=== PATIENT | male | born 1955 | race Caucasian/White ===

== ENCOUNTER → 2019-10-11 11:29 | Outpatient (BNVA) | payer MEDICARE, SELFPAY | PROVIDERS: Family Provider Family Medicine; PCP Family Medicine; Visit Provider Family Medicine | DX: I70.8 Atherosclerosis of other arteries (principal); Z79.899 Other long term (current) drug therapy | CPT/HCPCS: 80053 ==

== ENCOUNTER 2019-10-21 11:17 | Outpatient (CLI) | payer MEDICARE, SELFPAY ==
--- NOTE | 2019-10-21 11:31 | XR_ITS ---
WS: [id number] CHEST 2 VIEWS HISTORY: copd COMPARISON: 01/24/2018 Lungs: Hyperinflated lungs. No pneumonia. Normal vasculature. Dual lead LEFT subclavian cardiac pacer with defibrillator. Cardiac size: Mildly enlarged cardiac silhouette. Mediastinum/Aorta: Ectatic thoracic aorta. Bones: Normal. Prior cholecystectomy. XR/XR chest 2V* [id number] IMPRESSION: Mild chronic emphysema and mild cardiomegaly.
== END 2019-10-21 11:18 | disposition home or self-care (01) ==
PROVIDERS: PCP Family Medicine; Visit Provider Family Medicine
DX: I70.8 Atherosclerosis of other arteries (principal); J43.9 Emphysema, unspecified; I51.7 Cardiomegaly
CPT/HCPCS: 71046

== ENCOUNTER → 2020-02-11 11:43 | Outpatient (BNVA) | payer MEDICARE, SELFPAY | PROVIDERS: PCP Family Medicine; Visit Provider Internal Medicine Cardiovascular Disease | DX: E78.5 Hyperlipidemia, unspecified (principal); I10 Essential (primary) hypertension; N28.9 Disorder of kidney and ureter, unspecified | CPT/HCPCS: 80053; 80061; 85025 ==

== ENCOUNTER 2020-02-28 09:51 | Emergency (ER) | payer MEDICARE, SELFPAY ==
[2020-02-28 10:08] VITALS: BP 116/83; PULSE 84; RESP 16; TEMP 36.3; O2SAT 97; BMI 22.0
[2020-02-28 10:14] VITALS: O2SAT 97
--- NOTE | 2020-02-28 10:33 | CT_ITS ---
WS: [id number] CT ABDOMEN PELVIS TECHNIQUE: Contrast-enhanced CT of the abdomen and pelvis with coronal and sagittal reformatted image s. CLINICAL INFORMATION: abd pain, RLQ, LLQ COMPARISON: CT 11 019 DLP: 446.[address] scans at [facility] use at least one of these dose optimization techniques: automat ed exposure control; mA and/or kV adjustment per patient size (includes targeted exams where dose is matched to clinical indication); or iterative reconstruction. FINDINGS: Diffuse fatty infiltration liver. Cholecystectomy clips. Lung bases are well aerated. Normal GE junct ion. Normal spleen. Pancreas appears normal. Adrenal glands are normal. Normal renal parenchymal enha ncement. No hydronephrosis. No obstructing renal or ureteral calculi. Normal caliber abdominal aorta. Normal sigmoid colon. No evidence of small or large bowel obstruction. No periaortic lymphadenopathy. No inguinal lymphadenopathy. No pelvic lymphadenopathy. Disc osteophyte complex L4-5 with4 moderate central canal stenosis. CT/CT abdomen pelvis w con* [id number] IMPRESSION: 1. No acute abdominal or pelvic findings. 2. No evidence of small or large bowel obstruction. 3. Sigmoid diverticulosis. No evidence of acute diverticulitis. 4. Cholecystectomy clips. 5. Normal caliber abdominal aorta.
--- NOTE | 2020-02-28 10:34 | W.ED.ABDPA2 ---
HPI - Abdominal Pain General: Chief Complaint: Abdominal Pain Stated Complaint: CHRONIC LOWER ABD PAIN Time Seen by Provider: 02/28/20 10:09 History of Present Illness: HPI narrative: Complains about chronic lower abdominal pain over the last 3 years been worse last couple months is not seen by 4 says it hurts across his right lower quadrant area hurts to move hurts to walk at times said it radiates up into his epigastric area time he does have history of chronic low back problems MD elicited complaint: abdominal pain Location: RLQ and LLQ Severity: similar to previous episodes Quality: aching Radiation: epigastric Exacerbating factors: movement Relieving factors: rest Associated Symptoms: Reports no associated symptoms; Denies chills, fever(s), nausea and vomiting Review of Systems Const: Denies: fever(s), chills or body aches Eyes: Denies: change in vision or blurry vision ENMT: Denies: throat pain or nasal congestion Card: Denies: chest pain or dyspnea on exertion Resp: Denies: dyspnea, productive cough or non-productive cough GI: Reports: abdominal pain; Denies: nausea or vomiting : Denies: difficulty urinating Musc: Denies: extremity pain Skin/Breast: Denies: rash Neuro: Denies: headache(s) Psych: Denies: anxiety or depression Ori/Lymph: Denies: easy bruising PFSH ED PFSH: Medical History (Updated 02/28/20 @ 12:14 by MATT Ha) Atherosclerosis of arteries Cardiomyopathy, dilated Chronic low back pain COPD (chronic obstructive pulmonary disease) Enrolled in chronic care management Hyperlipidemia Hypertension Insomnia Peripheral polyneuropathy Renal insufficiency Surgical History History of cholecystectomy History of tonsillectomy Social History Smoking and tobacco status: current every day smoker cigarettes Packs smoked per day: 0.5 Alcohol intake: current Alcohol intake frequency: holidays/special occasions only Physical Exam Const: COMMON NORMALS: no acute distress, average body habitus and patient oriented x3 HENMT: COMMON NORMALS: normocephalic HEAD & SCALP: normal to inspection and normocephalic FACE & SINUS: normal facial exam Eye: COMMON NORMALS: conjunctivae normal GENERAL EYE: appearance normal, both eyes and all related structures CONJUNCTIVA: Yes conjunctivae normal Neck/C-Spine: COMMON NORMALS: no JVD Chest: COMMONS NORMALS: normal inspection of the chest Resp: COMMON NORMALS: normal respiratory effort and clear to auscultation bilaterally AUSCULTATION: clear to auscultation bilaterally Cardio: COMMON NORMALS: no JVD, regular rate and regular rhythm RATE: regular rate RHYTHM: regular rhythm GI: COMMON NORMALS: Normal to inspection, nondistended, normoactive bowel sounds present Extremity: COMMON NORMALS: normal to inspection and full ROM Neuro: COMMON NORMALS: patient oriented x3 Course Vital Signs: Vital signs: Vital Signs Temperature 97.3 F L 02/28/20 10:08 Pulse Rate 88 02/28/20 11:33 Respiratory Rate 20 H 02/28/20 11:33 Blood Pressure 97/80 02/28/20 11:33 Pulse Oximetry 98 02/28/20 11:33 MDM - Abdominal Pain MDM Narrative: Medical decision making narrative: Patient follow-up Dr. Paulino's office get repeat of UA. Also discussed chronic low back problems bulging disc degenerative disc disease. Differential Diagnosis: Differential diagnosis abdominal pain: Likely abdominal pain, diverticulitis, gastroenteritis, pancreatitis and small bowel obstruction Lab Data: Labs: Lab Results 02/28/20 02/28/20 02/28/20 Range/Units 11:15 11:20 11:20 WBC 8.3 (4.0-10.0) 10^3/ uL RBC 4.05 L (4.1-5.3) 10^6/u L Hgb 12.0 (11.7-16.6) g/dL Hct 39.9 L (42.0-52.0) % MCV 98.5 H (80-94) fL MCH 29.6 (28.0-34.0) pg MCHC 30.1 (30.0-36.0) g/dL RDW 16.7 H (12.1-15.1) % Plt Count 172 (130-400) 10^3/c mm MPV 10.7 H (7.4-10.4) fL Neut % (Auto) 78.2 % Lymph % (Auto) 14.4 % [place] % (Auto) 6.3 % Eos % (Auto) 0.7 % Baso % (Auto) 0.2 % Neut # (Auto) 6.45 (1.8-7.7) 10^3/u L Lymph # (Auto) 1.2 (0.8-4.8) 10^3/u L [place] # (Auto) 0.5 (0.2-0.9) 10^3/u L Eos # (Auto) 0.1 (0.0-0.8) 10^3/u L Baso # (Auto) 0.0 (0.0-0.1) 10^3/u L Nucleated RBC % (a uto) 0 % Nucleated RBCs # 0.0 /100WBC Sodium 137 (136-145) mmol/L Potassium 4.9 (3.5-5.1) mmol/L Chloride 105 (98-107) mmol/L Carbon Dioxide 22 (22-29) mmol/L Anion Gap 14.9 (5-19) BUN 30 H (8-23) mg/dL Creatinine 2.1 H (0.7-1.2) mg/dL GFR Calculation 31.8 L (90-130) mL/min Glucose 103 (65-115) mg/dL Calculated Osmolal ity 290 (285-295) mOsm/k g Calcium 8.9 (8.5-10.5) mg/dL Total Bilirubin 0.4 (0.15-1.2) mg/dL AST 21 (0-40) U/L ALT 18 (0-41) U/L Alkaline Phosphata se 113 (40-130) IU/L Total Protein 7.0 (6.6-8.7) g/dL Albumin 4.1 (3.5-5.2) g/dL Globulin 2.9 (1.3-4.6) g/dL Lipase 44 (13-60) U/L Urine Color Yellow (Yellow) Urine Appearance Clear (CLEAR) Urine pH 5.0 (5-7) Ur Specific Gravit y 1.015 (1.005-1.030) Urine Protein Neg (Negative) Urine Glucose (UA) Norm (Normal) Urine Ketones Negative (Negative) Urine Blood 2+ H (Negative) Urine Nitrate Negative (Negative) Urine Bilirubin Neg (Negative) Urine Urobilinogen Norm (Negative) mg/dL Ur Leukocyte [place] ase Negative (Negative) Urine RBC 5-10 H (0-2) /hpf Urine WBC None (0-5) /hpf Ur Squamous Epith Cells 0-4 H (0-5) /hpf Amorphous Sediment Not Reportable Urine Bacteria Trace (NONE) /hpf Discharge Plan Discharge Patient Disposition: Home Clinical Impression: Diverticulosis Abdominal pain Qualifiers: Abdominal location: generalized Qualified Code(s): R10.84 - Generalized abdominal pain Hematuria Qualifiers: Hematuria type: benign essential microscopic Qualified Code(s): R31.1 - Benign essential microscopic hematuria Chronic back pain Qualifiers: Back pain location: low back pain Back pain laterality: bilateral Sciatica presence: without sciatica Qualified Code(s): M54.5 - Low back pain Condition: Stable Prescriptions: New Medrol (Esau) 4 mg tablets,dose pack See Rx Instructions .ROUTE .COMPLEX Qty: 21 RF: 0 tramadol 50 mg tablet 50 mg PO Q8H PRN (Reason: pain) Qty: 14 RF: 0 No Action coenzyme Q10 [CoQ-10] 100 mg capsule 100 mg PO DAILY RF: 0 diphenhydramine HCl [Allergy (diphenhydramine)] 25 mg capsule 25 mg PO Q6H PRNRF: 0 magnesium 200 mg tablet 200 mg PO DAILY RF: 0 [id number] 333-133-5 mg tablet PO RF: 0 apple cider vinegar 600 mg capsule PO BID RF: 0 albuterol sulfate [Ventolin HFA] 90 mcg/actuation HFA aerosol inhaler 2 puff INHALATION Q6H PRN (Reason: shortness of breath or wheezing) Qty: 3 RF: 11 spironolactone 25 mg tablet 25 mg PO DAILY Qty: 90 RF: 3 carvedilol [Coreg] 6.25 mg tablet 6.25 mg PO BID Qty: 180 RF: 1 furosemide 40 mg tablet 40 mg PO DAILY Qty: 90 RF: 1 gabapentin [Neurontin] 600 mg tablet 600 mg PO TID Qty: 270 RF: 0 meloxicam 15 mg tablet 15 mg PO DAILY Qty: 90 RF: 1 omeprazole 20 mg capsule,delayed release(DR/EC) 20 mg PO BID Qty: 180 RF: 1 rosuvastatin [Crestor] 20 mg tablet 20 mg PO DAILY Qty: 90 RF: 1 tamsulosin [Flomax] 0.4 mg capsule 0.4 mg PO DAILY Qty: 90 RF: 0 fluticasone propionate [Allergy Relief (fluticasone)] 50 mcg/actuation spray,suspension 2 spray INTRANASAL DAILY Qty: 47.4 RF: 1 Discharge Orders: Discharge Order (Routine); Ordered 02/28/20 Ordered By: Michael Vaughn Referrals: Tho Da Silva, [Primary Care Provider] - Discharge Diet: As Directed Discharge Activity: Increase activity as tolerated Patient Instructions: Hematuria - Male, Abdominal Pain (ED), Chronic Back Pain (ED) Activity Restrictions/Additional Instructions: Follow-up with medical provider as directed. Take medications as prescribed. Return to the ER or your medical provider if condition worsens. Please read and understand discharge instructions. If any questions ask please. Follow-up Dr. Paulino as scheduled. Make sure that you eat a high-fiber diet. Repeat urine sample Dr. Paulino's office Coding Level of Care Code ED Systems Technologist for Chg Fwd Exam Comprehensive
[2020-02-28 11:26] LABS: Basophils % 0.2 %; Eosinophils # 0.1 10^3/uL (0.0-0.8); Eosinophils % 0.7 %; Hematocrit 39.9 % (42.0-52.0); Lymphocytes # 1.2 10^3/uL (0.8-4.8); Lymphocytes % 14.4 %; Mean Corpuscular HGB Conc 30.1 g/dL (30.0-36.0); Mean Corpuscular Hemoglobin 29.6 pg (28.0-34.0); Mean Corpuscular Volume 98.5 fL (80-94); Mean Platelet Volume 10.7 fL (7.4-10.4); Monocytes # 0.5 10^3/uL (0.2-0.9); Monocytes % 6.3 %; Neutrophils # 6.45 10^3/uL (1.8-7.7); Neutrophils % 78.2 %; Nucleated Red Blood Cells % 0 %; Platelet Count 172 10^3/cmm (130-400); Red Blood Count 4.05 10^6/uL (4.1-5.3); Red Cell Distribution Width 16.7 % (12.1-15.1); White Blood Count 8.3 10^3/uL (4.0-10.0)
[2020-02-28 11:31] LABS: Add Urine Microscopic? YES; Bilirubin Urine Neg (Negative); Blood Urine 2+ (Negative); Glucose Urine UA Norm (Normal); Ketones Urine Negative (Negative); Leukocyte Esterase Urine Negative (Negative); Nitrate Urine Negative (Negative); Protein Urine Neg (Negative); Specific Gravity, Urine 1.015 (1.005-1.030); Urine Appearance Clear (CLEAR); Urine Color Yellow (Yellow); Urobilinogen Urine Norm (Negative)
[2020-02-28 11:33] VITALS: BP 97/80; PULSE 88; RESP 20; O2SAT 98
[2020-02-28 11:37] LABS: Bacteria Urine TRACE /hpf; Squamous Epithelial Cell Urine 0-4 /hpf (0-5)
[2020-02-28 11:38] LABS: Add Urine Culture? No
[2020-02-28 11:44] LABS: Alanine Aminotransferase 18 U/L (0-41); Albumin Level 4.1 g/dL (3.5-5.2); Alkaline Phosphatase 113 IU/L (40-130); Aspartate Amino Transferase 21 U/L (0-40); Blood Urea Nitrogen 30 mg/dL (8-23); Calcium 8.9 mg/dL (8.5-10.5); Carbon Dioxide 22 mmol/L (22-29); Chloride 105 mmol/L (98-107); Globulin 2.9 g/dL (1.3-4.6); Glomerular Filtration Rate 31.8 mL/min (90-130); Glucose 103 mg/dL (65-115); Lipase 44 U/L (13-60); Osmolality Calculated 290 mOsm/kg (285-295); Sodium 137 mmol/L (136-145); Total Bilirubin 0.4 mg/dL (0.15-1.2)
[2020-02-28] MEDS: iodixanol 320 mg/mL 100mL Btl IV (11:45)
[2020-02-28 11:50] LABS: Anion Gap 14.9 (5-19); Potassium 4.9 mmol/L (3.5-5.1)
[2020-02-28 12:22] VITALS: BP 102/68; PULSE 83; RESP 18; O2SAT 98
== END 2020-02-28 12:22 | disposition home or self-care (01) ==
PROVIDERS: Emergency Provider Nurse Practitioner Family; PCP Family Medicine
DX: K57.90 Diverticulosis of intestine, part unspecified, without perforation or abscess without bleeding (principal); R31.1 Benign essential microscopic hematuria; M54.5 Low back pain; R10.84 Generalized abdominal pain; J44.9 Chronic obstructive pulmonary disease, unspecified; E78.5 Hyperlipidemia, unspecified; I10 Essential (primary) hypertension; F17.210 Nicotine dependence, cigarettes, uncomplicated
CPT/HCPCS: 12345; 74177; 80053; 81001; 83690; 85025; 99283; Q9967

== ENCOUNTER → 2020-03-10 11:38 | Outpatient (BNVA) | payer MEDICARE, SELFPAY | PROVIDERS: PCP Family Medicine; Visit Provider Internal Medicine | DX: R31.29 Other microscopic hematuria (principal) | CPT/HCPCS: 81000; 81003; 87635 ==

== ENCOUNTER 2020-03-13 07:47 | Day surgery (SDC) | payer MEDICARE, SELFPAY ==
[2020-03-09 08:43] VITALS: BMI 22.0
[2020-03-13 08:19] VITALS: BP 111/78; PULSE 80; RESP 18; TEMP 35.9; O2SAT 98
[2020-03-13] MEDS: sodium chloride 0.9% 1,000 ML 30 ML IV (08:30)
--- NOTE | 2020-03-13 08:50 | W.PM.OPSUD ---
Surgery/Procedure H&P Update DATE OF PROCEDURE: March 13, 2020 DATE H&P PERFORMED: 03/08/20 PREOP DIAGNOSIS: pain PLANNED PROCEDURE: Operation Date: 03/13/20 09:30 Proposed Procedures p EGD 90636 r31.29(Not Applicable) - Lionel Paulino MD
--- NOTE | 2020-03-13 09:12 | ANES.PREANE2 ---
Pre-Anesthetic Assessment Pre-Anesthetic Assessment: Height/Weight: Height 1.73 m Weight 65.771 kg Temp Pulse Resp BP Pulse Ox 96.6 F L 80 18 111/78 98 03/13/20 08:19 03/13/20 08:19 03/13/20 08:19 03/13/20 08:19 03/13/20 08:19 Preop Diagnosis: pain Proposed Procedure: Operation Date: 03/13/20 09:30 Proposed Procedures p EGD 89269 r31.29(Not Applicable) - Lionel Paulino MD Was Beta Shemar taken within 24 hours: Yes Last intake: Intake Last Liquid Date 03/12/20 Last Liquid Time 23:30 Last Solid Date 03/12/20 Last Solid Time 23:30 Social: Social History: No alcohol and No tobacco Exam: Pre-Anes Outpt Exam: alert, oriented x 3, clear to auscultation bilaterally and regular rate & rhythm Airway: Submandibular: WNL Cervical ROM: WNL MP: 2 Dentition: Full Pulmonary: Pulmonary: COPD and SOB CV/HEM: CV/HEM: Arrythmia, CHF and HTN Comments: S/P Defibrillator Placement : : Chronic renal Insufficiency Hepatic: Hepatic: None reported GI: GI: GERD Comments: Chronic abdominal pain Metabolic: Metabolic: None reported Musc/skel: Musc/skel: Lower Back Pain and OA/DJD Neuropsych: Neuropsych: None reported Anesthetic Plan: ASA status: 4 Anesthesia: MAC Risk of > 500 ml blood loss (7ml/kg in children): No Meds/Allergies Current Medications: Current Medications Generic Name Dose Route Start Last Admin Trade Name Freq PRN Reason Stop Dose Admin Sodium Chloride 1,000 mls @ 30 ml s/hr 03/13/20 08:15 03/13/20 08:30 Sodium Chloride 0.9% IV 03/14/20 08:14 30 mls/hr .Q24H OSITO Administration PFSH Anesthesia PFSH: Medical History (Updated 03/08/20 @ 14:24 by Lionel Paulino MD) Atherosclerosis of arteries Cardiomyopathy, dilated Chronic low back pain COPD (chronic obstructive pulmonary disease) Enrolled in chronic care management Hyperlipidemia Hypertension Insomnia Peripheral polyneuropathy Renal insufficiency Surgical History History of cholecystectomy History of tonsillectomy Social History (Updated 03/08/20 @ 13:50 by TSERING Mancilla) Smoking and tobacco status: current every day smoker cigarettes Packs smoked per day: 0.5 Alcohol intake: current Alcohol intake frequency: holidays/special occasions only History of recent travel: Yes Out of state: Yes Data Anesthesia Cardiac Studies: No Data to Display
[2020-03-13 10:12] VITALS: BP 93/65; PULSE 62; RESP 16; TEMP 36.2; O2SAT 97
--- NOTE | 2020-03-13 10:21 | ANE.PACU2 ---
Inpatient post-anesthesia follow up: Airway intact: Yes Vital signs: Temperature 97.1 F Pulse Rate 62 Respiratory Rate 16 Blood Pressure 93/65 Pulse Oximetry 97 Oxygen Delivery Me thod Nasal Cannula Oxygen Flow Rate 3 Fraction of Inspir ed Oxygen Hydration adequate: Yes Nausea and vomiting: No Pain level: 1 Mental status: Baseline
[2020-03-13 10:31] VITALS: BP 99/75; PULSE 76; RESP 18; O2SAT 94
--- NOTE | 2020-03-13 15:22 | ANE.PACU2 ---
Inpatient post-anesthesia follow up: Airway intact: Yes Vital signs: Temperature 97.1 F Pulse Rate 76 Respiratory Rate 18 Blood Pressure 99/75 Pulse Oximetry 94 Oxygen Delivery Me thod Room Air Oxygen Flow Rate 3 Fraction of Inspir ed Oxygen Hydration adequate: Yes Nausea and vomiting: No Pain level: 4 Mental status: Baseline
[2020-03-14 10:09] LABS: H. Pylori / CLO Test Negative
== END 2020-03-13 11:04 | disposition home or self-care (01) ==
PROVIDERS: PCP Family Medicine; Visit Provider Internal Medicine
PROC: 0DJ08ZZ Inspection of Upper Intestinal Tract, Via Natural or Artificial Opening Endoscopic (ICD-10-PCS; CPT 43235; principal; 2020-03-13 09:30)
DX: R10.9 Unspecified abdominal pain (principal); K21.00 Gastro-esophageal reflux disease with esophagitis, without bleeding; K29.70 Gastritis, unspecified, without bleeding; J44.9 Chronic obstructive pulmonary disease, unspecified; I11.0 Hypertensive heart disease with heart failure; I50.9 Heart failure, unspecified; M19.90 Unspecified osteoarthritis, unspecified site; E78.5 Hyperlipidemia, unspecified; F17.210 Nicotine dependence, cigarettes, uncomplicated
CPT/HCPCS: 12345; 43239; 87077; J2704; J7030

== ENCOUNTER → 2020-05-31 16:49 | Outpatient (BNVA) | payer MEDICARE, SELFPAY | PROVIDERS: PCP Family Medicine; Visit Provider Internal Medicine Cardiovascular Disease | DX: I10 Essential (primary) hypertension (principal); I25.10 Atherosclerotic heart disease of native coronary artery without angina pectoris; I50.9 Heart failure, unspecified; N28.9 Disorder of kidney and ureter, unspecified | CPT/HCPCS: 80053; 83735; 83880 ==